=== PATIENT | female | born 1960 | race African-American/Black ===

== ENCOUNTER 2017-11-27 12:23 | Emergency (ER) | payer OTHER ==
[~2017-11-27] VITALS: Ht 157.5 cm; Wt 63.7 kg
[~2017-11-27 12:23] MED LIST: ASCORBIC ACID500 M3 PO; ASPIR 8181 M1 PO; ASPIR-LOW81 MG PO; ATORVASTATIN CA40 MG PO; CALCIUM 600 +1 EAC9 PO; CALCIUM 600+D1 EACH PO; CITALOPRAM HBR20 MG PO; COLACE100 MG PO; COUMADIN1 MG PO; COUMADIN2 MG PO; COUMADIN5 MG PO; DICLOFENAC SODI75 MG PO; DILAUDID2 MG PO; Ecotrin PO; FLAXSEED-FISH-400 MG PO; GARLIC1000 MG PO; GLYBURIDE5 MG PO; Glucophage PO; IBUPROFEN400 MG PO; IBUPROFEN800 MG PO; MET PO; METFORMIN HCL1000 M1 PO; METFORMIN HCL1000 MG PO; MOTRIN800 MG PO; MULTIVITAMIN1 EAC2 PO; NAPROSYN500 MG PO; NAPROXEN500 MG PO; NATALCARE RX1 TABLE1 PO; NEXIUM40 MG PO; NOHOMEMEDS; NORCO 5/3251 TABLET PO; OMEPRAZOLE40 M1 PO; PANTOPRAZOLE SO40 MG PO; PEN-VEE K,VEET500 MG PO; PERCOCET 5/31 TABLET PO; PRAVACHOL40 MG PO; PRILOSEC20 MG PO; PROPRANOLOL HCL40 MG PO; PROTONIX40 MG PO; ROCEPHIN1 GM/50 ML IV; TRULICITY1.5 MG/0.5 SC; TYLENOL EXTRA500 MG PO; TYLENOL REGULA325 MG PO; Tylenol Regular Stre PO; VICTOZA 2-0.6 MG/0.1 SC; VICTOZA0.6 MG/0.1 SC; VITAMIN B12-FO1 EACH PO; VITAMIN C500 M1 PO; Vancocin Oral Solution PO; ZOFRAN4 MG PO
[2017-11-27 12:56] LABS: HEMATOCRIT 37.6 % (36.0-46.0); HEMOGLOBIN 12.3 G/DL (11.9-15.5); MCH 27.8 PG (29.0-34.0); MCHC 32.7 G/DL (30.0-36.0); MCV 84.9 FL (83-99); PLATELET COUNT 414 K/uL (156-360); RBC DIS.WIDTH-SD 40.1 % (39-53); RED BLOOD COUNT 4.43 M/uL (3.80-5.20); WHITE BLOOD COUNT 11.5 K/uL (4.1-10.2)
[2017-11-27 13:08] LABS: ALBUMIN 4.4 g/dL (3.2-4.8)
[2017-11-27 13:09] LABS: CHLORIDE 102 mEq/L (99-109); SODIUM 138 mEq/L (136-147)
[2017-11-27 13:11] LABS: APPEARANCE CLOUDY ((CLEAR)); BILIRUBIN MODERATE; BLOOD NEGATIVE; COLOR AMBER ((YELLOW)); GLUCOSE (STRIP) 50; KETONES 5; LEUKOCYTES NEGATIVE; NITRITE NEGATIVE; PROTEIN (STRIP) 100; SPECIFIC GRAVITY 1.031 (1.000-1.030)
[2017-11-27 13:11] LABS: GLUCOSE 144 mg/dL (70-99); TOTAL PROTEIN 7.5 g/dL (6.4-8.3)
[2017-11-27 13:13] LABS: TOTAL BILIRUBIN 0.4 mg/dL (0.0-1.0)
[2017-11-27 13:14] LABS: ALKALINE PHOSPHATASE 89 IU/L (3-129)
[2017-11-27 13:15] LABS: CREATININE 0.9 mg/dL (0.6-1.3); GFR ESTIMATE (CALCULATED) > 59 mL/min/
[2017-11-27 13:16] LABS: AST (GOT) 33 IU/L (2-34); UREA NITROGEN (BUN) 24 mg/dL (9-23)
[2017-11-27 13:17] LABS: BACTERIA RARE /HPF; CALCIUM OXALATE CRYSTALS 1+ /HPF; EPITHELIAL CELLS RARE /HPF; MUCUS 2+ /LPF; UCUL ADDED? NO; WHITE BLOOD CELLS 0-5 /HPF (0-5)
[2017-11-27 13:18] LABS: ALT (GPT) 42 IU/L (3-49)
[2017-11-27 14:02] LABS: ICTOTEST NEGATIVE
[2017-11-27 15:20] LABS: LIPASE 46 U/L (1.0-51.0)
[2017-11-27 16:24] VITALS: BP 125/87
== END 2017-11-27 16:28 | disposition home or self-care (01) ==
LOC: EME 12:23
DX: R10.9 Unspecified abdominal pain (principal); E11.9 Type 2 diabetes mellitus without complications; E78.5 Hyperlipidemia, unspecified; I10 Essential (primary) hypertension; K21.9 Gastro-esophageal reflux disease without esophagitis; F41.9 Anxiety disorder, unspecified; F32.9 Major depressive disorder, single episode, unspecified; Z79.84 Long term (current) use of oral hypoglycemic drugs
CPT/HCPCS: 74177; 80053; 81003; 82948; 83690; 85027; 99281; 99284; J7030

== ENCOUNTER → 2017-12-18 | Outpatient (CLI) | payer OTHER ==
[~2017-12-18] VITALS: Ht 154.9 cm; Wt 61.7 kg
[~2017-12-18] MED LIST changes: +DERMACINRX SIL1 EACH TP; +LIPITOR20 MG PO; +LISINOPRIL5 MG PO; +VOLTAREN-XR100 MG PO
== END | disposition home or self-care (01) ==
LOC: AMB 08:24
PROVIDERS: Internal Medicine
PROC: 0DBP8ZX Excision of Rectum, Via Natural or Artificial Opening Endoscopic, Diagnostic (ICD-10-PCS; principal; 2017-12-18)
DX: Z12.11 Encounter for screening for malignant neoplasm of colon (principal); K57.30 Diverticulosis of large intestine without perforation or abscess without bleeding; K62.1 Rectal polyp; K64.8 Other hemorrhoids; R10.9 Unspecified abdominal pain; E11.9 Type 2 diabetes mellitus without complications; E78.5 Hyperlipidemia, unspecified; Z79.84 Long term (current) use of oral hypoglycemic drugs
CPT/HCPCS: 82948; 88305; 93005